=== PATIENT | female | born 1930 | race Caucasian/White ===

== ENCOUNTER 2018-09-18 04:59 | Emergency (ER) | payer MEDICARE ==
[~2018-09-18] VITALS: Ht 165.1 cm; Wt 68.0 kg
--- NOTE | 2018-09-18 05:02 | NUR ---
PT BIB [facility] FROM [facility]GED WITH [facility] FOR ALLERGIC REACTION WITH HIVES AND WELTS OVER ENTIRE BODY. PT GIVEN BENADRYL.
[2018-09-18] MEDS ORDERED: methylPREDNISolone SOD SUCC 125 MG/2 ML ONE (05:23)
[2018-09-18] MEDS ORDERED: FAMOTIDINE 20 MG/2 ML ONE (05:23)
[2018-09-18] MEDS ORDERED: FAMOTIDINE 20 MG/2 ML IVPush ONE (05:30)
[2018-09-18] MEDS ORDERED: methylPREDNISolone SOD SUCC 125 MG/2 ML IVPush ONE (05:30)
[2018-09-18 06:32] VITALS: BP 131/67
--- NOTE | 2018-09-18 06:32 | NUR ---
PT RESTING ON Room WITH HOB ELEVATED. VSS. UPDATED ON POC.
--- NOTE | 2018-09-18 07:16 | NUR ---
Patient/Caregiver given discharge instructions and they have confirmed that they understand the instructions. Patient ambulatory with steady gait.
== END 2018-09-18 07:18 | disposition home or self-care (01) ==
LOC: ED 07:17
DX: L50.9 Urticaria, unspecified (principal)
CPT/HCPCS: 96374; 96375; 99283; J2930; J3490

== ENCOUNTER 2019-11-25 14:13 | Inpatient (IN) | payer MEDICARE ==
[~2019-11-25] VITALS: Ht 165.1 cm; Wt 69.5 kg
--- NOTE | 2019-11-25 14:20 | NUR ---
PA AT BEDSIDE. PT ALSO CO POLYURIA.
--- NOTE | 2019-11-25 14:49 | NUR ---
monica villaseñor [phone]
[2019-11-25 14:58] LABS: ALANINE AMINOTRANSFERASE 32 U/L (12-78); ALBUMIN 3.5 g/dL (3.4-5.0); ANION GAP 4 mmol/L (5-15); BASOPHILS # (AUTO) 0.04 x10^3/uL (0-0.1); BASOPHILS % (AUTO) 0 % (0-1); CALCIUM 9.6 mg/dL (8.5-10.1); CHLORIDE 102 mmol/L (98-107); CREATININE 0.75 mg/dL (0.55-1.02); EOSINOPHILS # (AUTO) 0.25 x10^3/uL (0-0.4); EOSINOPHILS % (AUTO) 2 % (1-7); LYMPHOCYTES # (AUTO) 2.36 x10^3/uL (1-3.4); LYMPHOCYTES % (AUTO) 20 % (22-44); MD NO; MEAN CORPUSCULAR HEMOGLOBIN 32.9 pg (27.0-34.8); MEAN CORPUSCULAR HGB CONC 32.8 g/dL (32.4-35.8); MEAN PLATELET VOLUME 8.3 fL (7.4-10.4); MONOCYTES # (AUTO) 1.17 x10^3/uL (0.2-0.8); MONOCYTES % (AUTO) 10 % (2-9); NEUTROPHILS # (AUTO) 8.03 x10^3/uL (1.8-6.8); NEUTROPHILS % (AUTO) 68 % (42-75); PLATELET COUNT 324 x10^3/uL (130-400); RED BLOOD COUNT 4.02 x10^6/uL (3.82-5.3); RED CELL DISTRIBUTION WIDTH 13.6 % (9.6-15.2)
[2019-11-25 15:00] LABS: ALKALINE PHOSPHATASE 133 U/L (45-117); BILIRUBIN,TOTAL 0.6 mg/dL (0.2-1.0); TOTAL PROTEIN 7.3 g/dL (6.4-8.2)
[2019-11-25] MEDS ORDERED: MORPHINE SULFATE 4 MG/ML, 1ML ONE ×2 (15:30→16:41)
[2019-11-25] MEDS: MORPHINE SULFATE 4 MG/ML, 1ML IVPush PRN ×2 (15:34→16:43)
--- NOTE | 2019-11-25 15:37 | NUR ---
STRAIGHT CATHED UA SENT MED PER JUL FOR PAIN VSS. CALL MARC.
[2019-11-25 16:07] LABS: MICROSCOPIC NOT IND
--- NOTE | 2019-11-25 16:23 | NUR ---
ua pending. oob to commode. c/o a lot of pain. as
--- NOTE | 2019-11-25 16:47 | NUR ---
repeat dose morphine, ua clear, pt to xr of back. as
--- NOTE | 2019-11-25 17:53 | NUR ---
recheck. xr back. daughter at bedside. as
--- NOTE | 2019-11-25 18:26 | NUR ---
jose alberto in room for update. tbadm. aware and agrees. as
--- NOTE | 2019-11-25 18:35 | NUR ---
task rn: hospitalist bedside.
--- NOTE | 2019-11-25 19:14 | NUR ---
TASK RN: PT ASSISTED TO BSC. NADN. PT TOLERATED WITH NO COMPLICATIONS.
[2019-11-25] MEDS ORDERED: HYDROcodone/APAP 5/325 TABLET PO PRN (19:30)
[2019-11-25] MEDS ORDERED: OXYcodone IR 5MG TABLET PO PRN (19:30)
[2019-11-25] MEDS ORDERED: ACETAMINOPHEN 325 MG TABLET PO PRN (19:30)
[2019-11-25] MEDS ORDERED: BISACODYL 10 MG SUPP PR PRN (19:30)
[2019-11-25] MEDS ORDERED: ONDANSETRON 2MG/ML, 2ML IVPush PRN (19:30)
--- NOTE | 2019-11-25 19:58 | NUR ---
ATTEMPT X3 TO CALL FLOOR SINCE [phone].
--- NOTE | 2019-11-25 20:27 | NUR ---
REPORT TO SHERI SHETH.
[2019-11-25 21:08] VITALS: BP 121/68
[2019-11-25] MEDS: ENOXAPARIN 40 MG/0.4 ML SQ SCH (21:10)
[2019-11-25] MEDS: FAMOTIDINE 20 MG TABLET PO SCH (21:10)
[2019-11-26 00:38] VITALS: BP 132/78
[2019-11-26] MEDS: morphine SULFATE 10 MG/ML, 1ML IVPush PRN ×3 (03:24→13:24)
[2019-11-26 05:41] LABS: BASOPHILS # (AUTO) 0.02 x10^3/uL (0-0.1); BASOPHILS % (AUTO) 0 % (0-1); EOSINOPHILS # (AUTO) 0.15 x10^3/uL (0-0.4); EOSINOPHILS % (AUTO) 2 % (1-7); LYMPHOCYTES # (AUTO) 1.55 x10^3/uL (1-3.4); LYMPHOCYTES % (AUTO) 16 % (22-44); MD NO; MEAN CORPUSCULAR HEMOGLOBIN 32.2 pg (27.0-34.8); MEAN CORPUSCULAR HGB CONC 31.8 g/dL (32.4-35.8); MEAN PLATELET VOLUME 7.9 fL (7.4-10.4); MONOCYTES # (AUTO) 1.05 x10^3/uL (0.2-0.8); MONOCYTES % (AUTO) 11 % (2-9); NEUTROPHILS # (AUTO) 6.75 x10^3/uL (1.8-6.8); NEUTROPHILS % (AUTO) 71 % (42-75); PLATELET COUNT 307 x10^3/uL (130-400); RED BLOOD COUNT 3.93 x10^6/uL (3.82-5.3); RED CELL DISTRIBUTION WIDTH 13.8 % (9.6-15.2)
[2019-11-26 05:59] LABS: CALCIUM 9.2 mg/dL (8.5-10.1); CREATININE 0.66 mg/dL (0.55-1.02)
[2019-11-26 06:06] LABS: ANION GAP 6 mmol/L (5-15); CHLORIDE 103 mmol/L (98-107)
[2019-11-26 07:26] VITALS: BP 117/66
[2019-11-26] MEDS: FOLIC ACID 1 MG TABLET PO SCH (07:59)
[2019-11-26] MEDS: THIAMINE 100MG TABLET PO SCH ×2 (07:59→20:43)
[2019-11-26] MEDS: FAMOTIDINE 20 MG TABLET PO SCH (07:59)
[2019-11-26] MEDS: SENNA/DOCUSATE TABLET PO SCH (08:00)
[2019-11-26 13:59] VITALS: BP 102/58
[2019-11-26] MEDS: KETOROLAC 30 MG/1 ML IV PRN (16:30)
[2019-11-26] MEDS: LIDODERM 5% PATCH TD PRN (17:00)
[2019-11-26] MEDS ORDERED: MORPHINE SULFATE 4 MG/ML, 1ML IVPush PRN (19:30)
[2019-11-26 20:40] VITALS: BP 102/64
[2019-11-26] MEDS: DOCUSATE 100 MG CAPSULE PO PRN (20:43)
[2019-11-26] MEDS: ENOXAPARIN 40 MG/0.4 ML SQ SCH (20:49)
[2019-11-27 00:40] VITALS: BP 145/77
[2019-11-27] MEDS: KETOROLAC 30 MG/1 ML IV PRN ×2 (00:52→17:36)
[2019-11-27] MEDS: METHOCARBAMOL 500 MG TABLET PO PRN ×2 (01:20→11:59)
[2019-11-27] MEDS: MELATONIN 5 MG TABLET PO PRN (01:20)
[2019-11-27 04:50] LABS: BASOPHILS # (AUTO) 0.05 x10^3/uL (0-0.1); BASOPHILS % (AUTO) 0 % (0-1); EOSINOPHILS % (AUTO) 2 % (1-7); LYMPHOCYTES # (AUTO) 1.32 x10^3/uL (1-3.4); LYMPHOCYTES % (AUTO) 13 % (22-44); MD NO; MEAN CORPUSCULAR HEMOGLOBIN 32.4 pg (27.0-34.8); MEAN CORPUSCULAR HGB CONC 32.2 g/dL (32.4-35.8); MEAN PLATELET VOLUME 8.2 fL (7.4-10.4); MONOCYTES # (AUTO) 1.12 x10^3/uL (0.2-0.8); MONOCYTES % (AUTO) 11 % (2-9); NEUTROPHILS # (AUTO) 7.57 x10^3/uL (1.8-6.8); NEUTROPHILS % (AUTO) 74 % (42-75); PLATELET COUNT 265 x10^3/uL (130-400); RED BLOOD COUNT 3.73 x10^6/uL (3.82-5.3); RED CELL DISTRIBUTION WIDTH 13.7 % (9.6-15.2)
[2019-11-27 04:54] LABS: ANION GAP 7 mmol/L (5-15); CALCIUM 8.6 mg/dL (8.5-10.1); CHLORIDE 101 mmol/L (98-107); CREATININE 0.76 mg/dL (0.55-1.02)
[2019-11-27 06:44] VITALS: BP 119/71
[2019-11-27] MEDS: FOLIC ACID 1 MG TABLET PO SCH (07:55)
[2019-11-27] MEDS: THIAMINE 100MG TABLET PO SCH ×2 (07:55→21:39)
[2019-11-27] MEDS: SENNA/DOCUSATE TABLET PO SCH (07:55)
[2019-11-27] MEDS: FAMOTIDINE 20 MG TABLET PO SCH (07:55)
[2019-11-27] MEDS: HYDROcodone/APAP 5/325 TABLET PO PRN ×3 (08:42→21:55)
[2019-11-27 13:34] VITALS: BP 127/66
[2019-11-27] MEDS ORDERED: FUROSEMIDE 20 MG/2 ML IV ONE (14:00)
[2019-11-27 14:15] LABS: TROPONIN I < 0.015 ng/mL (0.000-0.045)
[2019-11-27 15:08] VITALS: BP 139/76
[2019-11-27 19:16] VITALS: BP 118/69
[2019-11-27 20:02] LABS: TROPONIN I < 0.015 ng/mL (0.000-0.045)
[2019-11-27] MEDS: ENOXAPARIN 40 MG/0.4 ML SQ SCH (21:39)
[2019-11-27] MEDS: DOCUSATE 100 MG CAPSULE PO PRN (21:47)
[2019-11-28] MEDS: MELATONIN 5 MG TABLET PO PRN ×2 (01:20→20:42)
[2019-11-28 01:55] LABS: TROPONIN I < 0.015 ng/mL (0.000-0.045)
[2019-11-28] MEDS: KETOROLAC 30 MG/1 ML IV PRN ×2 (02:04→20:32)
[2019-11-28 02:15] VITALS: BP 129/73
[2019-11-28 05:44] LABS: BASOPHILS # (AUTO) 0.04 x10^3/uL (0-0.1); BASOPHILS % (AUTO) 0 % (0-1); EOSINOPHILS # (AUTO) 0.29 x10^3/uL (0-0.4); EOSINOPHILS % (AUTO) 3 % (1-7); LYMPHOCYTES % (AUTO) 12 % (22-44); MD NO; MEAN CORPUSCULAR HGB CONC 31.7 g/dL (32.4-35.8); MONOCYTES # (AUTO) 0.83 x10^3/uL (0.2-0.8); MONOCYTES % (AUTO) 8 % (2-9); NEUTROPHILS # (AUTO) 7.93 x10^3/uL (1.8-6.8); NEUTROPHILS % (AUTO) 77 % (42-75); PLATELET COUNT 273 x10^3/uL (130-400); RED BLOOD COUNT 3.73 x10^6/uL (3.82-5.3); RED CELL DISTRIBUTION WIDTH 13.1 % (9.6-15.2)
[2019-11-28 05:48] LABS: ALBUMIN 2.9 g/dL (3.4-5.0); ANION GAP 6 mmol/L (5-15); CALCIUM 8.7 mg/dL (8.5-10.1); CHLORIDE 103 mmol/L (98-107)
[2019-11-28 05:52] LABS: ALANINE AMINOTRANSFERASE 26 U/L (12-78); ALKALINE PHOSPHATASE 113 U/L (45-117); BILIRUBIN,TOTAL 0.5 mg/dL (0.2-1.0); CREATININE 0.53 mg/dL (0.55-1.02); TOTAL PROTEIN 6.2 g/dL (6.4-8.2)
[2019-11-28 06:54] VITALS: BP 134/71
[2019-11-28] MEDS: FAMOTIDINE 20 MG TABLET PO SCH (08:53)
[2019-11-28] MEDS: HYDROcodone/APAP 5/325 TABLET PO PRN ×2 (08:54→14:27)
[2019-11-28] MEDS: FOLIC ACID 1 MG TABLET PO SCH (08:54)
[2019-11-28] MEDS: THIAMINE 100MG TABLET PO SCH ×2 (08:54→20:32)
[2019-11-28] MEDS: SENNA/DOCUSATE TABLET PO SCH (08:54)
[2019-11-28] MEDS: FUROSEMIDE 20 MG/2 ML IV SCH ×2 (11:58→17:16)
[2019-11-28 12:56] VITALS: BP 129/75
[2019-11-28 19:34] VITALS: BP 125/61
[2019-11-28] MEDS ORDERED: CALCIUM CARBONATE 500 MG TAB.CHEW PO PRN (20:00)
[2019-11-28] MEDS: ENOXAPARIN 40 MG/0.4 ML SQ SCH (20:32)
[2019-11-28] MEDS: LIDODERM 5% PATCH TD PRN (21:27)
[2019-11-29 00:19] VITALS: BP 105/67
[2019-11-29] MEDS: HYDROcodone/APAP 5/325 TABLET PO PRN ×4 (02:39→16:35)
[2019-11-29] MEDS: METHOCARBAMOL 500 MG TABLET PO PRN ×2 (03:14→11:36)
[2019-11-29 03:15] VITALS: BP 126/67
[2019-11-29 06:45] LABS: TROPONIN I < 0.015 ng/mL (0.000-0.045)
[2019-11-29 07:37] VITALS: BP 118/59
[2019-11-29] MEDS: THIAMINE 100MG TABLET PO SCH (08:25)
[2019-11-29] MEDS: FAMOTIDINE 20 MG TABLET PO SCH (08:25)
[2019-11-29] MEDS: FUROSEMIDE 20 MG/2 ML IV SCH (08:25)
[2019-11-29] MEDS: FOLIC ACID 1 MG TABLET PO SCH (08:26)
[2019-11-29] MEDS: SENNA/DOCUSATE TABLET PO SCH (08:26)
[2019-11-29 14:02] VITALS: BP 114/71
[2019-11-29] MEDS ORDERED: FURO-93 PO ×2 (15:24)
[2019-11-29] MEDS ORDERED: LIDO700A20 TD ×2 (15:24)
[2019-11-29] MEDS ORDERED: METH500T7 PO ×2 (15:24)
[2019-11-29] MEDS ORDERED: POTA10TA5 PO ×2 (15:24)
[2019-12-09] MEDS ORDERED: DULO30CA2 PO (10:55)
[2019-12-15] MEDS ORDERED: ACID1TAB7 PO (09:53)
[2019-12-15] MEDS ORDERED: ACET325T26 PO (09:53)
[2019-12-15] MEDS ORDERED: CEFD300C37 PO (09:53)
[2019-12-15] MEDS ORDERED: FURO-93 PO (10:07)
[2019-12-15] MEDS ORDERED: POTA10TA5 PO (10:07)
[2020-01-07] MEDS ORDERED: CHOL10003 PO (18:28)
[2020-01-07] MEDS ORDERED: CALC-451 PO (18:28)
[2020-01-07] MEDS ORDERED: OMEP20TA62 PO (18:28)
[2020-01-15] MEDS ORDERED: ACET325T26 PO (14:07)
[2020-01-15] MEDS ORDERED: LIDO700A20 TD (14:07)
[2020-01-15] MEDS ORDERED: ZIPR20CA2 PO (14:07)
[2020-01-15] MEDS ORDERED: MELA3TAB31 PO (14:07)
[2020-01-15] MEDS ORDERED: DICL100G19 EXT (14:07)
[2020-01-15] MEDS ORDERED: DOCU100C33 PO (14:07)
[2020-01-15] MEDS ORDERED: METO25TA35 PO (14:07)
== END 2019-11-29 17:51 | disposition home or self-care (01) | DRG 542 ==
LOC: ED 16:36 → INTOOBSV 18:42 → OBSVTOIN 18:42 → EDIP 18:42 → 3N 20:42 → 5SO 11-27 14:47
PROVIDERS: ADMIT Internal Medicine; ATTEND Internal Medicine
PROC: 0T9B70Z Drainage of Bladder with Drainage Device, Via Natural or Artificial Opening (ICD-10-PCS; principal; 2019-11-25)
DX: M48.55XA Collapsed vertebra, not elsewhere classified, thoracolumbar region, initial encounter for fracture (principal); J96.01 Acute respiratory failure with hypoxia; I50.33 Acute on chronic diastolic (congestive) heart failure; G92 Toxic encephalopathy; G89.29 Other chronic pain; M51.36 Other intervertebral disc degeneration, lumbar region; K21.9 Gastro-esophageal reflux disease without esophagitis; D75.89 Other specified diseases of blood and blood-forming organs; D72.829 Elevated white blood cell count, unspecified; I35.1 Nonrheumatic aortic (valve) insufficiency; Z20.828 Contact with and (suspected) exposure to other viral communicable diseases; G89.21 Chronic pain due to trauma; M48.061 Spinal stenosis, lumbar region without neurogenic claudication; M48.50XS Collapsed vertebra, not elsewhere classified, site unspecified, sequela of fracture; M17.0 Bilateral primary osteoarthritis of knee; Z88.2 Allergy status to sulfonamides; Z90.710 Acquired absence of both cervix and uterus; Z90.49 Acquired absence of other specified parts of digestive tract; Z87.891 Personal history of nicotine dependence
CPT/HCPCS: 36415; 70450; 71045; 72110; 72146; 72148; 80048; 80053; 81003; 82306; 83735; 84100; 84425; 84443; 84484; 85025; 87635; 93005; 93306; G0378; J1650; J1885; J1940; J2270